=== PATIENT | male | born 1985 | race Hispanic/Latino ===

== ENCOUNTER 2019-02-18 01:27 | Emergency (ER) | payer OTHER, SELFPAY ==
[2019-02-18 01:30] VITALS: BP 155/77; PULSE 97; RESP 16; TEMP 36.8; O2SAT 97; BMI 31.5
--- NOTE | 2019-02-18 01:55 | ED.BACK ---
HPI - Back Pain/Injury General Chief Complaint: Back Pain/Injury Stated Complaint: sciatic pain/tingling left leg, back pain Time Seen by Provider: 02/18/19 01:37 Source: patient Mode of arrival: Ambulatory Limitations: no limitations History of Present Illness HPI Narrative: Patient comes emergency department complaining of left-sided sciatica flaring up. Patient states that he has been having this problem on and off since late December, when he sustained a back injury while doing a lift. The patient states that he keeps having shooting pains down his left leg from his buttock. He states that earlier today, he noticed that the bottom of his foot felt numb, though he states this has resolved. Patient's primary care physician has seen him, but patient [place] he [place] be able to have an MRI until he has been symptomatic for 6 weeks. Patient states he did not have any imaging done when he 1st sustained the injury. patient denies any fevers or chills. He did not have a prior back injury. Patient denies any loss of bowel or bladder control. Related Data Previous Rx's Medication Instructions Recorded hydrocodone-acetaminophen [Angela] 1 tab PO Q6H PRN #10 tab 02/18/19 methocarbamol [Robaxin-750] 750 mg PO Q8H #20 tab 02/18/19 Allergies Allergy/AdvReac Type Severity Reaction Status Date / Time No Known Drug Allergies Allergy Verified 02/18/19 01:55 Review of Systems Constitutional Constitutional: Denies chills, Denies fatigue, Denies fever(s), Denies frequent falls, Denies lethargy and Denies weakness Eyes Eyes: Denies change in vision, Denies eye discharge, Denies irritation and Denies loss of vision ENT Ears, Nose, Mouth, and Throat: Denies change in voice, Denies dizziness, Denies neck pain, Denies sore throat and Denies throat swelling Cardiovascular Cardiovascular: Denies chest pain, Denies irregular heart rhythm, Denies lightheadedness, Denies palpitations, Denies dyspnea, Denies dyspnea on exertion and Denies orthopnea Respiratory Respiratory: Denies cough, Denies dyspnea, Denies dyspnea on exertion and Denies wheezing Gastrointestinal Gastrointestinal: Denies abdominal pain, Denies change in bowel habits, Denies diarrhea, Denies nausea and Denies vomiting Genitourinary Genitourinary: Denies hematuria, Denies flank pain, Denies urinary incontinence and Denies urinary urgency Musculoskeletal Musculoskeletal: Reports back pain, Denies muscle weakness, Denies neck pain, Denies numbness and Denies tingling Comments: Left buttock and leg pain. Integumentary/Breasts Skin/Breast: Denies pruritus, Denies erythema, Denies rash and Denies wounds Neurologic Neurologic: Denies behavioral changes, Denies confusion, Denies dizziness, Denies frequent falls, Denies loss of vision, Denies numbness, Denies tingling and Denies weakness Psychiatric Psychiatric: Denies anxiety, Denies behavioral changes, Denies confusion, Denies depression, Denies homicidal ideation and Denies suicidal ideation Endocrine Endocrine: Denies fatigue, Denies flushing and Denies palpitations Hematologic/Lymphatic Hematologic/Lymphatic: Denies easy bruising Allergic/Immunologic Allergic/Immunologic: Denies urticaria, Denies throat swelling and Denies wheezing Patient History Medical History Sciatica (Acute) Surgical History No pertinent past surgical history (Acute) Social History Smoking Status: Current every day smoker tobacco type: cigarettes Substance Use Type: does not use Exam Initial Vital Signs Initial Vital Signs: Vital Signs Temperature 98.2 F 02/18/19 01:30 Pulse Rate 97 H 02/18/19 01:30 Respiratory Rate 16 02/18/19 01:30 Blood Pressure 155/77 H 02/18/19 01:30 Pulse Oximetry 97 02/18/19 01:30 Const General: cooperative and well developed Nutritional Appearance: well nourished Orientation: alert, awake, oriented x3 and not confused [facility] Head: normocephalic and atraumatic Ears: external ears normal and TM's normal bilaterally Nose: external nose normal and No nasal discharge Face and sinus: sinuses nontender, face symmetric, no sinus tenderness and No dry mucous membranes Mouth: oral mucosae normal and moist mucous membranes Teeth and gingiva: dentition normal Throat: tonsils normal and uvula midline Eyes General: appearance normal, both eyes and all related structures Eyelids: eyelids normal Conjunctivae: conjunctivae normal Sclera: sclerae normal Pupils: PERRL EOM: EOM intact bilaterally Neck Neck: normal visual inspection, trachea midline, No lymphadenopathy, No midline deformity and No JVD Lymphatic: No lymphedema Chest Chest: normal inspection of the chest Resp Effort & Inspection: normal respiratory effort, able to speak in complete sentences, no respiratory distress and no use of accessory muscles Auscultation: clear to auscultation bilaterally, no rales, no rhonchi and no wheezes Cardio Rate: regular rate Rhythm: regular rhythm Heart Sounds: no click, no gallops, no murmurs and no rubs Pulses: normal peripheral pulses GI Inspection: non-distended Palpation: soft, no hepatosplenomegaly, No guarding, No pulsatile mass and No tender Auscultation: normal bowel sounds Back/Spine/Pelvis Back: No CVA tenderness Cervical Spine: cervical ROM normal and No pain with cervical ROM Thoracic/Lumbar Spine: thoracic and lumbar spine normal to inspection Sacroiliac Joints: tender to palpation (Moderate) left Other: No paraspinal muscular tenderness of low back. Skin General: no rashes or lesions noted, No jaundice and No petechiae Neuro General: alert, oriented x3, gait normal and no focal motor deficits Speech: speech normal Extrem General: full ROM, no pedal edema and no calf tenderness Psych Appearance: well kempt Mental Status: mental status grossly normal Attitude: cooperative Thought Content: normal and suicidality Judgment: judgment good Course Course Course Narrative: Patient was treated symptomatically with IM Toradol and Dilaudid and p.o. Flexeril in the emergency department. We have discussed that the best imaging study at this point would be MRI, though most likely, the patient's symptoms will be self-limited. I have advised the patient to Dr. his primary care physician about the possibility of MRI. We have discussed home management the symptoms, as well as the usual indications for return. Orders Ordered: Discontinued Medications Cyclobenzaprine HCl (Flexeril) 10 mg PO NOW ONE Stop: 02/18/19 01:54 Last Admin: 02/18/19 01:59 Dose: 10 mg Documented by: RUBEN Hydromorphone HCl (Dilaudid) 1 mg IM NOW ONE Stop: 02/18/19 01:54 Last Admin: 02/18/19 01:59 Dose: 1 mg Documented by: RUBEN Ketorolac Tromethamine (Toradol) 60 mg IM NOW ONE Stop: 02/18/19 01:54 Last Admin: 02/18/19 01:58 Dose: 60 mg Documented by: RUBEN Vital Signs Vital signs: Vital Signs - 8 hr 02/18/19 01:30 02/18/19 02:35 Temperature 98.2 F 98.3 F Pulse Rate 97 H 81 Respiratory Rate 16 16 Blood Pressure 155/77 H 132/82 Pulse Oximetry 97 98 MDM - Back Pain/Injury Medical Records Attestation: I reviewed the patient's medical records. Discharge Plan Departure Patient Disposition: Home Clinical Impression: Sciatica Qualifiers: Laterality: left Qualified Code(s): M54.32 - Sciatica, left side Discharge Date/Time: 02/18/19 02:35 Instructions: DI for Sciatica Activity Restrictions/Additional Instructions: Please take only 1 of the new medications prescribed at a time, along with your gabapentin, to be sure you do not become over-sedated. Prescriptions: New methocarbamol [Robaxin-750] 750 mg tablet 750 mg PO Q8H Qty: 20 RF: 0 hydrocodone-acetaminophen [Angela] 5-325 mg tablet 1 tab PO Q6H PRN (Reason: pain) Qty: 10 RF: 0
[2019-02-18] MEDS: KETOROLAC 60 MG/2 ML VIAL IM (01:58)
[2019-02-18] MEDS: CYCLOBENZAPRINE 10 MG TABLET PO (01:59)
[2019-02-18] MEDS: HYDROMORPHONE 1 MG INJ IM (01:59)
[2019-02-18 02:35] VITALS: BP 132/82; PULSE 81; RESP 16; TEMP 36.8; O2SAT 98
== END 2019-02-18 02:35 | disposition home or self-care (01) ==
PROVIDERS: Emergency Provider Emergency Medicine
DX: M54.32 Sciatica, left side (principal)
CPT/HCPCS: 96372; 99282; 99283; J1170; J1885